=== PATIENT | male | born 1970 | race Caucasian/White ===

== ENCOUNTER 2021-09-11 12:48 | Emergency (ER) | payer BC ==
[~2021-09-11] VITALS: Ht 180 cm; Wt 109.0 kg
[2021-09-11 13:56] VITALS: BP 162/111
[2021-09-11] MEDS ORDERED: NS IV 1000 ML 1,000 ML IV STA (14:03)
[2021-09-11] MEDS ORDERED: LIDOCAINE 1% INJ 20 ML VIAL ONE (14:13)
--- NOTE | 2021-09-11 14:13 | ED Integumentary General ---
General Chief Complaint: Skin/Wound Problems Stated Complaint: ABCESS L ARMPIT, HIGH BLOOD SUGAR Nursing Triage Note: pt presents after being sent from . reports two abscess in left axilla x1week. reports sent him here d/t his blood sugar being 500. pt reports his BG has not been under 300 in over a year. reports taking 30u novolog prior to going to . BG now 347 Source: patient Exam Limitations: no limitations History of Present Illness Date Seen by Provider: September 11, 2021 Time Seen by Provider: 14:12 Initial Comments Patient is a 50-year-old male with a history of diabetes who presents ED with rash to left axilla. Noted to have 2 abscesses developing starting 3 days ago. Increased size and pain. States his blood sugar was over 500 today. Was sent to the ED from urgent care for elevated blood sugar and incision and drainage of the abscess. States his blood sugar has been running over 200 for the past year. Patient states he has been feeling tired fatigue over the past 2 weeks with frequent urination. Denies vomiting, diarrhea, headache, dizziness, chest pain, shortness of breath, fever, visual changes. No recent travels or surgeries Allergies and Home Medications Allergies Coded Allergies: Tetanus Vaccines and Toxoid (Verified Allergy, Unknown, 09/11/21) Patient Home Medication List Home Medication List Reviewed: Yes Cephalexin (Cephalexin) 500 Mg Tablet, 500 MG PO QID Prescribed by: MERLYN MORRIS on 09/11/21 0676 Review of Systems Review of Systems Constitutional: No chills, No fever, No malaise, No weakness EENTM: No blurred vision, No double vision, No vision loss, No nose pain, No throat pain Respiratory: No cough, No dyspnea on exertion, No orthopnea, No short of breath Cardiovascular: No chest pain Gastrointestinal: No abdominal pain; nausea; No vomiting Genitourinary: No decreased output, No discharge, No dysuria; frequency Musculoskeletal: No back pain, No joint pain Skin: No change in color, No change in hair/nails All Other Systems Reviewed Negative Unless Noted: Yes Past Qzdjelz-Xbbneo-Lmfjfg Hx Patient Social History Tobacco Use?: Yes Tobacco type used: Cigarettes Smoking Status: Current Everyday Smoker Substance use?: No Alcohol Use?: No Immunizations Up To Date Influenza Vaccine Up-to-Date: No; Not Current First/Initial COVID19 Vaccinat: unknown date Second COVID19 Vaccination Gary: unknown date Physical Exam Vital Signs Vital Signs - First Documented 09/11/21 13:56 Pulse 77 Resp 18 B/P (MAP) 162/111 (128) Pulse Ox 96 O2 Delivery Room Air Capillary Refill : General Appearance: WD/WN, no apparent distress HEENT: PERRL/EOMI, normal ENT inspection, TMs normal, pharynx normal Neck: non-tender, full range of motion, supple Cardiovascular: regular rate, rhythm, no edema, no gallop, no JVD Respiratory: chest non-tender, lungs clear, normal breath sounds, no respiratory distress, no accessory muscle use Gastrointestinal: normal bowel sounds, non tender, soft, no organomegaly Back: no CVA tenderness Extremities: normal range of motion, non-tender, normal inspection, no pedal edema Skin: other (1 x 2 cm fluctuant mass left axilla. 2 x 3 cm fluctuant mass left axilla.) Skin Problem Character: abscess, erythema (Erythema surrounding abscess to left axilla), swelling Procedures/Interventions I&D : Blade Size: 11 I & D Procedure: betadine prep Packing/Drain: Idoform 1/4 Progress 3 x 4 cm abscess to left axilla. Betadine prep. Moderate amount of purulent drainage. Packing was placed. Patient tolerated procedure well. 1 x 2 cm fluctuant mass left axilla. Small incision with 11 inch blade was made with small amount of purulent drainage. Progress/Results/Core Measures Results/Orders Lab Results Laboratory Tests Test 09/11/21 13:54 09/11/21 14:40 09/11/21 15:17 09/11/21 15:41 Range/Units Glucometer 379 H 247 H 70-110 MG/DL White Blood Count 7.9 4.3-11.0 10^3/uL Red Blood Count 5.40 4.30-5.52 10^6/uL Hemoglobin 15.2 13.3-17.7 g/dL Hematocrit 46 40-54 % Mean Corpuscular Volume 85 80-99 fL Mean Corpuscular Hemoglobin 28 25-34 pg Mean Corpuscular Hemoglobin Concent 33 32-36 g/dL Red Cell Distribution Width 12.9 10.0-14.5 % Platelet Count 250 130-400 10^3/uL Mean Platelet Volume 10.0 9.0-12.2 fL Immature Granulocyte % (Auto) 0 % Neutrophils (%) (Auto) 63 42-75 % Lymphocytes (%) (Auto) 26 12-44 % Monocytes (%) (Auto) 9 0-12 % Eosinophils (%) (Auto) 2 0-10 % Basophils (%) (Auto) 1 0-10 % Neutrophils # (Auto) 5.0 1.8-7.8 X 10^3 Lymphocytes # (Auto) 2.0 1.0-4.0 X 10^3 Monocytes # (Auto) 0.7 0.0-1.0 X 10^3 Eosinophils # (Auto) 0.1 0.0-0.3 10^3/uL Basophils # (Auto) 0.1 0.0-0.1 10^3/uL Immature Granulocyte # (Auto) 0.0 0.0-0.1 10^3/uL Sodium Level 132 L 135-145 MMOL/L Potassium Level 3.9 3.6-5.0 MMOL/L Chloride Level 99 98-107 MMOL/L Carbon Dioxide Level 24 21-32 MMOL/L Anion Gap 9 5-14 MMOL/L Blood Urea Nitrogen 17 7-18 MG/DL Creatinine 0.91 0.60-1.30 MG/DL Estimat Glomerular Filtration Rate 102 BUN/Creatinine Ratio 19 Glucose Level 360 H 70-105 MG/DL Calcium Level 8.9 8.5-10.1 MG/DL Corrected Calcium 9.0 8.5-10.1 MG/DL Total Bilirubin 0.9 0.1-1.0 MG/DL Aspartate Amino Transf (AST/SGOT) 34 5-34 U/L Alanine Aminotransferase (ALT/SGPT) 43 0-55 U/L Alkaline Phosphatase 139 H 40-136 U/L C-Reactive Protein High Sensitivity 0.73 H 0.00-0.50 MG/DL Total Protein 6.6 6.4-8.2 GM/DL Albumin 3.9 3.2-4.5 GM/DL Beta-Hydroxybutyrate (Chem panel) 0.11 0.00-0.27 MMOL/L Urine Color YELLOW Urine Clarity CLEAR Urine pH 6.0 5-9 Urine Specific [place] 1.010 L 1.016-1.022 Urine Protein NEGATIVE NEGATIVE Urine Glucose (UA) 3+ H NEGATIVE Urine Ketones NEGATIVE NEGATIVE Urine Nitrite NEGATIVE NEGATIVE Urine Bilirubin NEGATIVE NEGATIVE Urine Urobilinogen 0.2 < = 1.0 MG/DL Urine Leukocyte Esterase NEGATIVE NEGATIVE Urine RBC (Auto) NEGATIVE NEGATIVE Urine RBC 0-2 /HPF Urine WBC 2-5 /HPF Urine Squamous Epithelial Cells NONE /HPF Urine Renal Epithelial Cells NONE /HPF Urine Crystals NONE /LPF Urine Bacteria NEGATIVE /HPF Urine Casts NONE /LPF Urine Mucus NEGATIVE /LPF Urine Culture Indicated NO My Orders Orders - ABBY REYES Iv 1000 Ml (Sodium Chloride 0.9%) (09/11/21 14:03) Beta Hydroxybutyrate (09/11/21 14:03) Lidocaine 1% Inj 30 Ml (Xylocaine 1% Inj (09/11/21 14:15) Lidocaine 1% Inj 20 Ml (Xylocaine 1% Inj (09/11/21 14:13) Ua Culture If Indicated (09/11/21 15:03) Insulin (Regular) Human (Novolin R (Per (09/11/21 15:15) Medications Given in ED Current Medications Medications Dose Ordered Sig/Shea Route Start Time Stop Time Status Last Admin Dose Admin Insulin Human Regular 10 unit ONCE ONCE SC 09/11/21 15:15 09/11/21 15:16 DC 09/11/21 15:20 10 UNIT Vital Signs/I&O 09/11/21 13:56 Pulse 77 Resp 18 B/P (MAP) 162/111 (128) Pulse Ox 96 O2 Delivery Room Air Blood Pressure Mean: 128 Departure Communication (PCP) Patient does not appear in DKA. Hyperglycemia 379 improvement to 2 10:47 units subcu insulin. Does take insulin daily. Normal kidney function. Tolerating p.o. fluids. No vomiting or diarrhea. Reports fatigue with frequent urination. Likely secondary to elevated blood sugar. Patient has not establish care with a primary care physician in this area as he recently moved. Does have abscesses to the left axilla with incision and drainage here. Remove iodoform packing in 2 to 3 days. Will discharge with Keflex. If any worsening redness swelling to the abscess return back to ED for incision and drainage. Discussed better control blood sugar. If worsening symptoms return back to ED for further evaluation. Patient agrees with plan of action. Discussed diet changes. Recommend hydration. Discussed ways to better control blood sugar Impression Primary Impression: Abscess Additional Impression: Hyperglycemia Disposition: HOME, SELF-CARE Condition: Stable Departure-Patient Inst. Decision time for Depature: 15:14 Referrals: [facility] (PCP/Family) Primary Care Physician Patient Instructions: Cellulitis (Skin Infection), Child (DC) Add. Discharge Instructions: Remove packing in 2 to 3 days. Follow-up with [facility] for further evaluation of blood sugar All discharge instructions reviewed with patient and/or family. Voiced understanding. Scripts Cephalexin (Cephalexin) 500 Mg Tablet 500 MG PO QID for 7 Days, #28 TAB Prov: ABBY REYES 09/11/21 ABBY REYES September 11, 2021 14:13
[2021-09-11] MEDS ORDERED: LIDOCAINE 1% INJ 30 ML (XYLOCAINE) VIAL INJ ONE (14:15)
[2021-09-11 14:47] LABS: BASOPHILS # (AUTO) 0.1 10^3/uL (0.0-0.1); BASOPHILS % (AUTO) 1 % (0-10); EOSINOPHILS # (AUTO) 0.1 10^3/uL (0.0-0.3); EOSINOPHILS % (AUTO) 2 % (0-10); HEMATOCRIT 46 % (40-54); HEMOGLOBIN 15.2 g/dL (13.3-17.7); LYMPHOCYTES % (AUTO) 26 % (12-44); MEAN CORPUSCULAR HEMOGLOBIN 28 pg (25-34); MEAN CORPUSCULAR HGB CONC 33 g/dL (32-36); MEAN CORPUSCULAR VOLUME 85 fL (80-99); MONOCYTES # (AUTO) 0.7 X 10^3 (0.0-1.0); MONOCYTES % (AUTO) 9 % (0-12); NEUTROPHILS % (AUTO) 63 % (42-75); PLATELET COUNT 250 10^3/uL (130-400); WHITE BLOOD COUNT 7.9 10^3/uL (4.3-11.0)
[2021-09-11 14:56] LABS: ALBUMIN 3.9 GM/DL (3.2-4.5); POTASSIUM 3.9 MMOL/L (3.6-5.0)
[2021-09-11 14:57] LABS: CALCIUM 8.9 MG/DL (8.5-10.1)
[2021-09-11 14:58] LABS: TOTAL PROTEIN 6.6 GM/DL (6.4-8.2)
[2021-09-11 15:00] LABS: BILIRUBIN,TOTAL 0.9 MG/DL (0.1-1.0)
[2021-09-11 15:02] LABS: CREATININE SERUM 0.91 MG/DL (0.60-1.30)
[2021-09-11] MEDS ORDERED: inSUlin (REGULAR) HUMAN 1 UNIT/0.01 ML (CHARGE PER UNIT) SC ONE (15:15)
[2021-09-11] MEDS ORDERED: CEPH500T PO (15:16)
[2021-09-11 15:28] LABS: BILIRUBIN,URINE NEGATIVE (NEGATIVE); CLARITY,URINE CLEAR; COLOR,URINE YELLOW; GLUCOSE, URINE (UA) 3+ (NEGATIVE); KETONES,URINE NEGATIVE (NEGATIVE); LEUKOCYTE ESTERASE ,URINE NEGATIVE (NEGATIVE); NITRITE,URINE NEGATIVE (NEGATIVE); PROTEIN,URINE NEGATIVE (NEGATIVE)
[2021-09-11 15:44] LABS: BACTERIA,URINE NEGATIVE /HPF; RBC,URINE 0-2 /HPF
== END 2021-09-11 15:48 | disposition home or self-care (01) ==
LOC: ER 12:51
DX: L02.412 Cutaneous abscess of left axilla (principal); E11.65 Type 2 diabetes mellitus with hyperglycemia; F17.210 Nicotine dependence, cigarettes, uncomplicated
CPT/HCPCS: 36415; 80053; 81000; 82010; 82947; 85025; 86141; 99284

== ENCOUNTER 2021-11-03 16:40 | Emergency (ER) | payer SELFPAY ==
[~2021-11-03 16:40] MED LIST: CEPH500T PO
[2021-11-03] MEDS ORDERED: SODIUM BICARB 8.4% 50 MEQ/50 ML (ABBOTT) SYR INJ ONE (16:43)
[2021-11-03] MEDS ORDERED: EPINEPHrine 0.1 MG/ML 10 ML (HOSPIRA) SYR INJ ONE (16:43)
[2021-11-03] MEDS ORDERED: CALCIUM CHLORIDE 1 GM/10 ML (IMS) SYR INJ ONE (16:43)
[2021-11-03] MEDS ORDERED: inSUlin (REGULAR) HUMAN 1 UNIT/0.01 ML (CHARGE PER UNIT) ONE (16:49)
--- NOTE | 2021-11-03 17:46 | ED CPR ---
HPI-CPR General Chief Complaint: Code Blue Stated Complaint: CODE BLUE Source of Information: Patient, EMS, Old Records, Spouse Exam Limitations: Physical Impairments (CPR Orotracheally intubated) History of Present Illness Date Seen by Provider: Nov 03, 2021 Time Seen by Provider: 16:41 Initial Comments Patient to ER by EMS from his place of private residence where he and his were engaged in coitus when he had a witnessed cardiac arrest. EMS arrived and began CPR and place an ET tube did 8 rounds of epinephrine and at least 4 or 5 shocks for V. fib. 3 doses amiodarone. CPR for approx 1 hour by the time he arrived to the ER. He had PEA on their last check. 8.0 ET tube was placed. CBG 400+. Allergies and Home Medications Allergies Coded Allergies: Tetanus Vaccines and Toxoid (Verified Allergy, Unknown, 09/11/21) Patient Home Medication List Home Medication List Reviewed: Yes Cephalexin (Cephalexin) 500 Mg Tablet, 500 MG PO QID Prescribed by: MERLYN MORRIS on 09/11/21 1516 Review of Systems Review of Systems Constitutional: see HPI (History per he has not been sick.) All Other Systems Reviewed Negative Unless Noted: Yes Past Phvjyxj-Vrracl-Dmiahe Hx Patient Social History Tobacco Use?: Yes Tobacco type used: Cigarettes Substance use?: Yes Substance type: Methamphetamine Immunizations Up To Date First/Initial COVID19 Vaccinat: unknown date Second COVID19 Vaccination Gary: unknown date Third COVID19 Vaccination Date: unknown date Past Medical History Surgery/Hospitalization HX: DM Physical Exam Vital Signs Capillary Refill : Height, Weight, BMI Height: '" Weight: lbs. oz. kg; 33.00 BMI Method: General Appearance: Chronically ill, Severe Distress HEENT: No PERRL/EOMI (Pupils 6 mm nonreactive to light), No Pharynx Normal (Orotracheally intubated, dry oral mucosa) Neck: Full Range of Motion, Normal Inspection Respiratory: Lungs Clear, Respiratory Distress (Acute cardiopulmonary arrest) Cardiovascular: Other (Acute cardiopulmonary arrest receiving CPR) Gastrointestinal: No Normal Bowel Sounds; Soft Extremity: Normal Range of Motion, No Pedal Edema, Slow Capillary Refill, Other (Acrocyanosis) Neurologic/Psychiatric: Other Skin: Normal Color, Warm/Dry Progress/Results/Core Measures Results/Orders My Orders Orders - MELO SOSA Insulin (Regular) Human (Novolin R (Per (11/03/21 16:49) Calcium Chloride 10% Injection (Calcium (11/03/21 16:43) Epinephrine Emergency Syringe (Epinephr (11/03/21 16:43) Sodium Bicarbonate 8.4% Syr (Sodium Bica (11/03/21 16:43) Vital Signs/I&O 11/04/21 00:00 Intake Total 500 ml Balance 500 ml Progress Progress Note : Time: 18:35 Progress Note The patient's daughter and her arrived and went back with the family. Chief Transfer And Pumphouse Operator is present. They would like to use [facility]. Critical Care Note Critical Care Start Time: 16:41 Stop Time: 17:00 Total Time (minutes) 19m Date of : Nov 03, 2021 Time of : 17:00 Progress Patient presented orotracheally intubated with right mainstem by auscultation and had reduced by bringing his ET tube out to 24 at the teeth. Color improved a little bit however his eyes were fixed and he had a bradycardic PEA on the verge of asystole on the monitor with pulse checks. We continued to do epinephrine every 5 minutes, around of calcium chloride, bicarb and finished up the 1500 cc of fluids. Discussed the case with family. Was felt that we are now an hour and 15 minutes into his CPR and his case was futile. He did receive 1 shock at 200 J from us when he had fine V. fib which put him back into a bradycardia PEA. The team was queried and it was felt that discontinuation of resuscitative efforts was the only option left. The was in the family room and did not wish to come back and see him. Chief Transfer And Pumphouse Operator's wardrobe assistant was called and assisted her. Departure Impression Primary Impression: Cardiopulmonary arrest Disposition: 20 Condition: Departure-Patient Inst. Decision time for Depature: 18:36 Referrals: [facility] (PCP/Family) Primary Care Physician Patient Instructions: Sudden Cardiac Arrest Add. Discharge Instructions: All discharge instructions reviewed with patient and/or family. Voiced understanding. Copy Copies To 1: JESSICA MORTENSEN TITUS J Nov 03, 2021 17:45
== END 2021-11-03 21:05 | disposition expired ==
LOC: EDUNIT# 16:40 → ER 16:42
DX: I46.9 Cardiac arrest, cause unspecified (principal)
CPT/HCPCS: 36680; 51702